=== PATIENT | male | born 1990 | race Hispanic/Latino ===

== ENCOUNTER → 2024-05-16 | Outpatient (CLI) | payer OTHER ==
[2024-05-16 10:04] LABS: BASOPHILS # (AUTO) 0.02 K/uL (0.00-0.20); BASOPHILS % (AUTO) 0.3 % (0.0-5.0); EOSINOPHILS # (AUTO) 0.13 K/uL (0.00-0.70); EOSINOPHILS % (AUTO) 1.9 % (0.0-8.0); IMMATURE GRANULOCYTE ABSOLUTE 0.01 K/uL (0-1); LYMPHOCYTES # (AUTO) 1.9 K/uL (1.0-4.8); LYMPHOCYTES % (AUTO) 27.3 % (21.0-51.0); MEAN CORPUSCULAR HEMOGLOBIN 29.2 pg (27.0-33.0); MEAN CORPUSCULAR HGB CONC 33.8 g/dL (32.0-36.0); MEAN CORPUSCULAR VOLUME 86.4 fL (79-99); MONOCYTES # (AUTO) 0.4 K/uL (0.1-1.0); MONOCYTES % (AUTO) 6.2 % (3.0-13.0); NEUTROPHILS # (AUTO) 4.4 K/uL (1.8-7.7); NEUTROPHILS % (AUTO) 64.2 % (40.0-77.0); PLATELET COUNT (AUTO) 222 K/uL (130-400); RED BLOOD CELL COUNT(AUTO) 4.86 MIL/uL (4.50-6.20); RED CELL DISTRIBUTION WIDTH 12.2 % (11.0-15.5); WHITE BLOOD COUNT (AUTO) 6.9 K/uL (4.8-10.8)
[2024-05-16 10:06] LABS: HEMOGLOBIN A1C 5.2 % (4.0-6.0)
[2024-05-16 10:18] LABS: BILIRUBIN,TOTAL 0.4 mg/dL (0.2-1.0); POTASSIUM 4.1 mmol/L (3.5-5.1); THYROID STIMULATING HORMONE 0.75 uIU/mL (0.36-3.74); TOTAL PROTEIN, SERUM 7.6 g/dL (6.0-8.3)
== END | disposition home or self-care (01) ==
LOC: LAB 08:58
PROVIDERS: ATTEND Family Medicine
DX: Z13.220 Encounter for screening for lipoid disorders (principal); K21.00 Gastro-esophageal reflux disease with esophagitis, without bleeding; G44.209 Tension-type headache, unspecified, not intractable; R53.83 Other fatigue
CPT/HCPCS: 36415; 80053; 80061; 82043; 82570; 83013; 83036; 84443; 85025

== ENCOUNTER 2025-05-19 13:58 | Day surgery (SDC) | payer OTHER ==
--- NOTE | 2025-05-17 23:54 | HP ---
PROPOSED DATE OF SURGERY: 05/19/2025. CHIEF COMPLAINT: Desire for permanent fertility control with bilateral vasectomy. HISTORY OF PRESENT ILLNESS: The patient is a 34-year-old male with 4 children. He has elected to proceed with bilateral vasectomy for permanent fertility control. All risks, benefits, alternatives, and potential complications of this procedure as well as the potential for long-term epididymal pain and discomfort were carefully discussed with the patient. He is aware of the need for continued contraception until such time as to semen analysis establishes the absence of any sperm whatsoever. The patient did request the physician form and did provide fully informed consent. No guarantees are given. ALLERGIES: None. MEDICATIONS: None. PAST SURGICAL HISTORY: Negative, none reported. PAST MEDICAL HISTORY: No anxiety or depression, diabetes, hypertension, liver, or peripheral vascular disease. FAMILY HISTORY: Negative for prostate cancer, kidney stones. 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 REVIEW OF SYSTEMS: He has no shortness of breath or chest pain. His appetite is good. No nausea, vomiting, constipation, or diarrhea. No headaches, no dizziness, no tinnitus or nosebleeds. No joint pain, joint swelling, limitation of movement, night sweats, fever, chills, or skin rash. PHYSICAL EXAMINATION: GENERAL: He is a well-developed male, in no distress. HEENT: Head is atraumatic and normocephalic. Pupils are equal and reactive to light and accommodation. Extraocular movements are intact. No discharge from ears, nose, or throat. LUNGS: Lung ocasio are clear. HEART: Heart sounds are best heard in the fifth intercostal space. ABDOMEN: Full, soft, and nontender. BACK: No CVA tenderness. GENITOURINARY: External genitalia with no polyps or any lesions. Testicles are descended bilaterally and nontender. RECTAL: Patent anus. EXTREMITIES: No cyanosis, clubbing, or edema. NEUROLOGIC: Awake, alert, and oriented x 3. Cranial nerves I-XII are grossly intact. No gross motor or sensory deficits. IMPRESSION: Desire for permanent fertility control with bilateral vasectomy. PLAN: The proposed surgical procedure is that of bilateral vasectomy for which the patient provided fully informed consent, and no guarantees are given. Postoperative care to include scrotal elevation, ice pack to scrotum, and wound care instructions have been given to the patient also preoperatively. TID: [id number] RECEIPT: [id number]
[2025-05-18 13:51] LABS: APPEARANCE,URINE CLOUDY (CLEAR); GLUCOSE, URINE (UA) NEGATIVE (NEGATIVE); LEUKOCYTE ESTERASE ,URINE NEGATIVE Leu/uL (NEGATIVE); NITRATE,URINE NEGATIVE (NEGATIVE); OCCULT BLOOD,URINE NEGATIVE (NEGATIVE)
[2025-05-18 13:52] LABS: ADD UA MICROSCOPIC YES
[2025-05-18 13:54] LABS: NUCLEATED RED BLOOD CELLS 0.0 % (0.0-0.19); PLATELET COUNT (AUTO) 221.0 K/uL (130-400); RED BLOOD CELL COUNT(AUTO) 4.71 MIL/uL (4.50-6.20); RED CELL DISTRIBUTION WIDTH 12.6 % (11.0-15.5); WHITE BLOOD COUNT (AUTO) 8.5 K/uL (4.8-10.8)
[2025-05-18 14:02] LABS: CREATININE 1.0 mg/dL (0.5-1.3); GLOMERULAR FILTR. RATE CALC 102.0 mL/min (>90); GLUCOSE,RANDOM 110.0 mg/dL (70-105); SODIUM SERUM 140.0 mmol/L (136-145); UREA NITROGEN, BLOOD 14.0 mg/dL (7-18)
[2025-05-18 14:03] LABS: SQUAMOUS EPITHELIAL CELL,UR RARE /HPF (0-2)
[2025-05-18 14:05] LABS: INR 1.08 (0.85-1.15)
[2025-05-18 14:07] LABS: ASPARTATE AMINOTRANSFERASE 21.0 U/L (10-37); TOTAL PROTEIN, SERUM 7.5 g/dL (6.0-8.3)
[2025-05-18 14:28] VITALS: BP 127/77; PULSE 64; RESP 18; TEMP 97.9
--- NOTE | 2025-05-18 15:25 | HMCIMG ---
EXAM: CR Chest, 2 View. CLINICAL HISTORY: PRE OP COMPARISON: None provided. FINDINGS: LUNGS: There is no mass, infiltrate, or acute pulmonary abnormality. PLEURAL SPACES: No evidence of pleural effusion or pneumothorax. MEDIASTINUM: The cardiomediastinal silhouette is within normal limits. BONES: No aggressive appearing osseous lesion seen. IMPRESSION: No acute cardiopulmonary pathology is evident. /[place]
--- NOTE | 2025-05-18 18:21 | EKG ---
[facility] Test Date: 2025-05-18 Test Time: 13:38:39 Pat Name: KELLEY ROMANO Department: [facility] Room: [facility] Gender: M Assurance Senior: [id number] : 1990 Requested By: MIRIAM PEREZ Order Number: [id number] Reading MD: Danielle Sheffield Measurements Intervals [place] Rate: 62 P: 32 WA: 128 QRS: 45 QRSD: 94 T: 52 QT: 400 QTc: 408 Interpretive Statements Sinus rhythm No previous ECG available for comparison Electronically Signed On 05-19-2025 16:11:25 CDT by Danielle Sheffield Please click the below link to view image of tracing.
[2025-05-19] VITALS (10 sets, daily range): BP systolic 99–131; BP diastolic 54–88; PULSE 49–98; RESP 14–15; TEMP 96.9–97.7
[~2025-05-19] VITALS: Ht 170.2 cm; Wt 85.7 kg
[2025-05-19] MEDS ORDERED: ZOSYN 3.375GM +NS 50ML IVPB ONE (15:00)
[2025-05-19] MEDS ORDERED: LIDOCAINE PF 100MG/5ML (2%) SYRINGE 5ML ONE (17:56)
[2025-05-19] MEDS ORDERED: MIDAZOLAM HCL 1 MG/ML 2ML VIAL ONE ×2 (17:56→17:58)
[2025-05-19] MEDS ORDERED: GLYCOPYRROLATE 0.2 MG/ML 5 ML VIAL ONE (18:01)
[2025-05-19] MEDS: LIDOCAINE HCL 1% 20 ML VIAL MISC ONE (18:03)
[2025-05-19] MEDS ORDERED: BUPIvacaine HCL/EPINEPHrine/PF 0.25% 10ML VIAL IJ ONE (18:10)
[2025-05-19] MEDS ORDERED: LIDOCAINE HCL 1% 20 ML VIAL ONE (18:10)
[2025-05-19] MEDS ORDERED: LIDOCAINE 1%-EPI 1:100,000 20 ML VIAL ONE (18:30)
[2025-05-19] MEDS ORDERED: BACITRACIN 28.4 GM OINT TP ONE (19:18)
--- NOTE | 2025-05-19 20:06 | OP ---
DATE OF PROCEDURE: 05/19/2025 PREOPERATIVE DIAGNOSIS: Desire for permanent fertility control with bilateral vasectomy. PROCEDURE PERFORMED: Bilateral vasectomy. POSTOPERATIVE DIAGNOSES: Desire for permanent fertility control with bilateral vasectomy. SURGEON: Francisco Rockwell MD ANESTHESIA: General anesthesia with local infiltration of spermatic cord with 1% lidocaine and Marcaine 0.5%. SPECIMENS: The right and left segments of vas deferens. COMPLICATIONS: None. DRAINS: None. INDICATIONS FOR PROCEDURE: This is a 34-year-old male with 4 children here with his . He elected to proceed with bilateral vasectomy. He has reviewed the risks, benefits, and alternatives of his procedure guarantees and the potential for long-term discomfort. Despite his serious admonitions, he wished to proceed. He is aware that he will need to continue with current contraceptive methodology until such time as two serial semen analyses establish the absence of any sperm whatsoever in 4-6 weeks. DESCRIPTION OF PROCEDURE: He did provide fully informed consent for bilateral vasectomy. The patient was duly identified, informed consent was confirmed. Timeout was taken. He was then brought to the operating room, placed on the table. After adequate hemodynamic monitoring had been established by Anesthesiology, the patient underwent smooth induction of general anesthesia by Anesthesiology. He was placed in the supine position. He was then thoroughly prepped and draped from a . Next, a hemiscrotal incision was then made about 1 cm on the left scrotum after the vas had been palpated in the cord and then an incision over the vas through the skin was carried down through the layers of the scrotum. The vas was engaged with a vas clamp, brought out of the wound, and stripped of all its coverings. A 1.5 cm segment was excised. Proximal and distal ends were endoluminally cauterized. They were folded on themselves, tied up with permanent 4-0 nylon ligature, and both ties. The ends were also cauterized endoluminally. The ends were now returned into the scrotum. This was done both on the proximal and the distal end. The ends were then returned into the scrotum and the skin was closed with 3-0 chromic gut suture in an interrupted fashion with about 5 sutures. An identical procedure was performed on the contralateral right side. A 1.5 cm segment was also excised. The proximal and distal ends were endoluminally cauterized, followed by being folded on themselves and tied with a 4-0 nylon ligature with a proximal to both ties. The ends were returned to the scrotum and the skin was now closed with 3-0 chromic interrupted suture. Instrument count, sponge count, needle count were all said to be correct at this stage of the procedure. The patient tolerated the procedure well. There were no complications. A scrotal support was then applied with an ice pack. The patient was awakened from anesthesia and he was now transferred from the operating room to recovery room in good stable and hemodynamically satisfactory condition having experienced no complications The patient will be discharged home later today with instructions for wound care as well as elevation, ice packs to the scrotum, scrotal support, and continued contraception until such time as serial semen analyses show absence of any sperm, whatsoever. TID: [id number] RECEIPT: [id number]
--- NOTE | 2025-05-19 20:30 | NUR ---
PT AND SPOUSE GIVEN VERBAL AND WRITTEN DISCHARGE INSTRUCTIONS IV REMOVED SITE ASYMPTOMATIC. PT TAKEN OUT VIA WHEELCHAIR
== END 2025-05-19 20:44 | disposition home or self-care (01) ==
LOC: SUH 13:58 → DAH 13:58 → SUH 20:44
PROVIDERS: ATTEND Urology
DX: Z30.2 Encounter for sterilization (principal)
CPT/HCPCS: 80053; 85027; 85610; 85730; 87086; 81001; 36415; 71046; 93005; 55250; A6260; A4663; J7030; J3010; J3490 ×3; J2003; J2250 ×2; J2704 ×3; J2405; J2543; J0665; A4215; A4223 ×2; A4213; A4222; A4221; A4216; 88302